=== PATIENT | male | born 1930 | race Hispanic/Latino ===

== ENCOUNTER 2016-10-05 11:07 | Outpatient (CLI) | payer MEDICARE ==
[2016-10-05 10:26] LABS: Hematocrit 38.8 % (35.5-45.6); Hemoglobin 12.8 gm/dl (11.8-15.2); Mean Corpuscular HGB Conc 33 % (32-34); Mean Corpuscular Hemoglobin 31 pg (28-32); Mean Corpuscular Volume 95 fl (84-94); Red Cell Distribution Width 15.4 % (13.2-15.2); White Blood Count 8.2 K/mm3 (4.5-11.0)
[2016-10-05 10:45] LABS: Albumin 3.8 g/dL (3.9-5); Albumin/Globulin Ratio 1.3 %; BUN/Creatinine Ratio 12.3; Bilirubin,Total 0.7 mg/dL (0.1-1.2); Calcium 8.5 mg/dL (8.4-10.2); Chloride 104.6 mmol/L (98-107); Potassium 3.5 mmol/L (3.6-5.0); Total Protein 6.7 g/dL (6.3-8.2)
[2016-10-05 10:57] LABS: Platelet Count 101 K/mm3 (140-440)
== END 2016-10-05 11:08 | disposition home or self-care (01) ==
LOC: LAB 11:07
PROVIDERS: ATTEND Internal Medicine
DX: F99 Mental disorder, not otherwise specified (principal); R53.1 Weakness; R55 Syncope and collapse
CPT/HCPCS: 36415; 80053; 84439; 84443; 85027